=== PATIENT | female | born 1945 | race Caucasian/White ===

== ENCOUNTER 2019-07-09 01:34 | Emergency (ER) | payer MEDICARE ==
[~2019-07-09] VITALS: Ht 167.6 cm; Wt 113.4 kg
== END 2019-07-09 03:32 | disposition home or self-care (01) ==
LOC: ED 01:34
DX: T16.2XXA Foreign body in left ear, initial encounter (principal); X58.XXXA Exposure to other specified factors, initial encounter; Y93.89 Activity, other specified; Y92.098 Other place in other non-institutional residence as the place of occurrence of the external cause; Y99.8 Other external cause status